=== PATIENT | male | born 1990 | race Caucasian/White ===

== ENCOUNTER 2020-04-12 00:34 | Emergency (ER) | payer OTHER, MEDICAID, SELFPAY ==
[2020-04-12] VITALS (17 sets, daily range): BP systolic 119–138; BP diastolic 56–79; PULSE 79–93; RESP 16–28; TEMP 37.1–37.3; O2SAT 95–100; BMI 29.7
--- NOTE | 2020-04-12 00:36 | DI.RAD.S_ITS ---
PROCEDURE: XR CHEST 1V INDICATIONS: possible aspiration TECHNIQUE: One view of the chest was acquired. COMPARISON: None. FINDINGS: Surgical changes and devices: None. Lungs and pleura: Lungs are clear. No pleural effusions or pneumothorax. Mediastinum: Mediastinal contours appear normal. Heart size is normal. Bones and chest wall: No suspicious bony lesions. Overlying soft tissues appear unremarkable. IMPRESSION: No acute cardiopulmonary disease process. Dictated by: Ijeoma Meraz MD, PhD on 04/12/2020 at 8:57 Approved by: Ijeoma Meraz MD, PhD on 04/12/2020 at 8:57
[2020-04-12 01:07] LABS: Creatine Kinase 501 U/L (55-170)
[2020-04-12 01:08] LABS: Prothrombin Time 11.9 SECONDS (10.1-12.7)
[2020-04-12 01:09] LABS: Add Manual Diff / Slide Review NO; Basophils Absolute Auto 0 /uL (0-100); Basophils Percent Auto 0.2 % (0-2); Eosinophils Absolute Auto 0 /uL (0-450); Hematocrit 45.7 % (41-53); Hemoglobin 15.8 g/dL (13.5-17.5); Lymphocytes Absolute Auto 2100 /uL (1100-4500); Lymphocytes Percent Auto 9.4 % (25-40); Mean Corpuscular HGB Conc 34.7 % (30-36); Mean Corpuscular Hemoglobin 30.8 PG (26-34); Mean Corpuscular Volume 88.8 fL (80-100); Monocytes Absolute Auto 600 /uL (0-900); Monocytes Percent Auto 2.6 % (3-14); Neutrophils Absolute Auto 19900 /uL (1500-7000); Neutrophils Percent Auto 87.8 % (50-75); Platelet Count 318 X10^3/uL (150-400); Red Blood Cell Count 5.14 X10^6/uL (4.5-5.9); Red Cell Distribution Width 11.9 % (11.6-14.8); White Blood Cell Count 22.6 X10^3/uL (4.5-11.0)
[2020-04-12 01:10] LABS: PTT Partial Thromboplastin Tim 27 SECONDS (26.4-36.2)
[2020-04-12 01:20] LABS: Troponin I 0.015 ng/mL (0.01-0.034)
[2020-04-12 01:23] LABS: CKMB % Relative Index 0.3 % (1.5-5.0); Creatine Kinase MB 1.46 ng/mL (<2.37)
[2020-04-12 01:24] LABS: Alanine Aminotransferase 47 IU/L (<50); Albumin Globulin Ratio 1.4 (1.0-2.8); Alkaline Phosphatase 85 U/L (38-126); Aspartate Aminotransferase 51 IU/L (17-59); BUN Creatinine Ratio 16.5 (6-22); Bilirubin Total 0.6 mg/dL (0.2-1.3); Blood Urea Nitrogen 13 mg/dL (9-20); Calcium 9.5 mg/dL (8.4-10.2); Carbon Dioxide 15 mmol/L (22-32); Chloride 107 mmol/L (98-107); Estimated Glomerular Filt Rate > 60.0 mL/min (>60); Globulin 3.5 g/dL (1.7-4.1); Glucose 103 mg/dL (70-100); Potassium 4.2 mmol/L (3.4-5.1); Sodium 140 mmol/L (137-145); Total Protein 8.5 g/dL (6.3-8.2)
[2020-04-12 01:25] LABS: HEMOLYSIS 70 (0-50)
--- NOTE | 2020-04-12 01:30 | PC.NURSE ---
Applied willian hugger and warm blankets to assist warming patient.
[2020-04-12 01:32] LABS: Lactate (Lactic Acid) 3.3 mmol/L (0.7-2.1)
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
[2020-04-12] MEDS: KETOROLAC 60 MG/2 ML VIAL 15 MG IV (02:14)
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
[2020-04-12 03:19] LABS: Reflexed Lactate in 2 Hours Y
[2020-04-12 03:48] LABS: Lactate 2HR (Lactic Acid Rflx) 2.2 mmol/L (0.7-2.1)
[2020-04-12 03:49] LABS: BUN Creatinine Ratio 20.6 (6-22); Blood Urea Nitrogen 14 mg/dL (9-20); Calcium 8.8 mg/dL (8.4-10.2); Carbon Dioxide 15 mmol/L (22-32); Chloride 110 mmol/L (98-107); Creatine Kinase 655 U/L (55-170); Estimated Glomerular Filt Rate > 60.0 mL/min (>60); Glucose 99 mg/dL (70-100); HEMOLYSIS 25 (0-50); Sodium 138 mmol/L (137-145)
== END 2020-04-12 07:33 | disposition home or self-care (01) ==
PROVIDERS: Emergency Provider Emergency Medicine
DX: T68.XXXA Hypothermia, initial encounter (principal)
CPT/HCPCS: 36415; 51701; 51705; 71045; 80048; 80053; 82550; 82553; 83605; 84484; 85025; 85610; 85730; 93005; 93010; 96374; 99285; J1885